=== PATIENT | female | born 1955 | race Caucasian/White ===

== ENCOUNTER 2022-03-12 11:10 | Outpatient (CLI) | payer MEDICARE, BC, SELFPAY ==
--- OUTSIDE RECORDS SUMMARY | 2022-03-12 11:20 | XMS_ITS | Encounter Summary ---
:1955 Author Organization [facility] Address [address] [place] [address] Care Team Providers Name Role Phone Kamar Saldivar MD Primary Care Provider Reason for Visit Reason Onset Date Comments Call pt 10/20/2020 Encounter Details Date Type Department Care Team Description 10/20/2020 Telephone SE Endocrinology Annita Rivas MBBS Call pt [address] [place] [address] [place] [address] (Wo rk) Social History Tobacco Use Types Packs/Day Years Used Date Never Smoker Smokeless Tobacco: Never Used Alcohol Use Standard Drinks/Week Comments Yes 0 (1 standard drink = 0.6 oz pure alcoho l) 1 drink/wk Alcohol Habits Answer Date Recorded How often do you have a drink containing alcohol? Not asked How many drinks containing alcohol do you have on a typical Not asked day when you are drinking? How often do you have six or more drinks on one occasion? No t asked Comment: 1 drink/wk 07/22/2018 Education Answer Date Recorded What is the highest level of school Bachelor's degree (e.g., BA, AB, 07/22/2018 you have completed or the highest BS) degree you have received? Sex Assigned at Date Recorded Female 11/20/2020 8:01 AM CDT documented as of this encounter Miscellaneous Notes Telephone Encounter - JIMBO Botello - 10/21/2020 9:28 PM CDT Replied in result note, thank you. Telephone Encounter - Ruby Haque MA - 10/20/2020 4:42 PM CDT Talked with patient and she checked with her insurance about the Nuclear Medicine Testing at [place] and [facility] is out of network therefore the cost to do the testing would be very expensive. Patientis unsure if [place] would be able to do the Nuclear Medicine Testing. Also patient had labs done yesterday. Please review and advise. Telephone Encounter - Dionne Pablo - 10/20/2020 1:27 PM CDT Please call patient regarding her situation with her possible upcoming surgery. She has cancelled her future follow up appointment that was scheduled for 11/10/20 and would like to talk to a nurse priorto rescheduling. documented in this encounter Plan of Treatment Upcoming Encounters Date Type Specialty Care Team Description 03/21/2022 Office Visit Endocrinology Annita Rivas MBBS [address] [place], [place] [address] (Wo rk) documented as of this encounter Visit Diagnoses Not on filedocumented in this encounter Care Teams Air Traffic Control Equipment Repairer Relationship Specialty Start Date End Date Kamar Saldivar MD PCP - General Family Medicine 09/20/[address] [place] [address] documented as of this encounter
--- OUTSIDE RECORDS SUMMARY | 2022-03-12 11:20 | XMS_ITS | Encounter Summary ---
:[address] [facility] Address [address] [place] [address] Care Team Providers Name Role Phone Kamar Saldivar MD Primary Care Provider Encounter Details Date Type Department Care Team Description 11/09/2020 Orders Only SE Family Med Kamar Saldivar MD [address] [facility] [address] [place] [address] [place], [place] [phone] (Wo rk) Social History Tobacco Use Types [...] AM CDT documented as of this encounter Plan of Treatment Upcoming Encounters Date Type Specialty Care Team Description 03/21/2022 Office Visit Endocrinology Annita Rivas MBBS [address] [place], [place] [address] (Wo rk) documented as of this encounter Visit Diagnoses Not on filedocumented in this encounter Care Teams Certified Registered Nurse Anesthetist Relationship Specialty Start Date End Date Kamar Saldivar MD PCP - General Family Medicine 09/20/[address] [place] [address] documented as of this encounter
--- OUTSIDE RECORDS SUMMARY | 2022-03-12 11:20 | XMS_ITS | Encounter Summary ---
:1955 Author Organization [facility] Address [address] [place] [address] Care Team Providers Name Role Phone Kamar Saldivar MD Primary Care Provider Reason for Visit Reason Onset Date Comments lab results 201902/26/2022 Encounter Details Date Type Department Care Team Description 02/26/2022 Telephone [place] Kamar Saldivar MD lab results [address] [place], [place] [address] [place], [place] [phone] (Wo rk) Social History Tobacco Use Types [...] this encounter Miscellaneous Notes Telephone Encounter - Roula Martinez RN - 02/26/2022 12:11 PM CDT RN spoke to patient and gave her the values of her urine and serum calicum from 2020.Patient cydney is unable to get into her portal at this time. Telephone Encounter - Angela Whiting - 02/26/2022 11:51 AM CDT Requesting #s amounts of calcium and blood from x2 samples [facility] lab Sep 2019. [phone] documented in this encounter Plan of Treatment Upcoming Encounters Date Type Specialty Care Team Description 03/21/2022 Office Visit Endocrinology Annita Rivas MBBS [address], [place] [address] (Wo rk) documented as of this encounter Visit Diagnoses Not on filedocumented in this encounter Care Teams Ramp Jockey Relationship Specialty Start Date End Date Kamar Saldivar MD PCP - General Family Medicine 09/20/[address] [place] [address] documented as of this encounter
--- OUTSIDE RECORDS SUMMARY | 2022-03-12 11:20 | XMS_ITS | Encounter Summary ---
:1955 Author Organization [facility] Address [address] [place] [address] Care Team Providers Name Role Phone Kamar Saldivar MD Primary Care Provider Reason for Visit Reason Comments Hypercalcemia Encounter Details Date Type Department Care Team Description 11/16/2020 Office Visit Endocrinology Rivas, Hyperparathyroidism (HCC) (P rimary Dx); [address] [place], Hypercalcemia; [place] [address] MBBS Hypercalciuria; [phone] Weight gain [place], [place] [address] Social History Tobacco Use Types Packs/Day Years [...] AM CDT documented as of this encounter Last Filed Vital Signs Vital Sign Reading Time Taken Comments Blood Pressure 123/82 11/16/2020 4:15 PM CDT Pulse 78 11/16/2020 4:15 PM CDT Temperature 36.3 ??C (97.3 ??F) 11/16/2020 4:15 PM CDT Respiratory Rate 12 11/16/2020 4:15 PM CDT Oxygen Saturation 94% 11/16/2020 4:15 PM CDT Inhaled Oxygen Concentration - - Weight 79.1 kg (174 lb 6.1 oz) 11/16/2020 4:15 PM CDT Height 169 cm (5' 6.54) 11/16/2020 4:15 PM CDT Body Mass Index 27.7 11/16/2020 4:15 PM CDT documented in this encounter Progress Notes JIMBO Botello - 11/16/2020 4:00 PM CDT Estab Patient Visit Patient: Christen Tidwell 65 y.o. female 1955 Date of Service: 11/16/20 Primary care provider: Kamar Saldivar MD Reason for visit: Christen Tidwell is a 65 y.o. female presenting for follow up of hyperparathyroidism. History of presenting illness: Patient is a female with medical history significant for sleep disorder treated with CPAP, Lyme disease and babesiosis. Patient was first made aware of hypercalcemia in 07/2019 when her calcium was 10.9 (8.4-10.2). She was on a calcium supplement which she was advised to stop. Labs were repeated in 08/2020. Calcium was again elevated, 10.6. Serum albumin and kidney function were normal. PTH was elevated as well, 90.8 (10-87). TSH was 1.56. Vitamin D was 51.6. Phosphorous was not checked. Urine calcium was high, 532. Urine creatinine was not checked. She presents for follow up today, last seen on 10/02/20. Patient states that she does not sleep well and feels tired all the time. She is concerned about weight gain, states that she has gained 2 pounds since the last visit and 10-15 pounds in the last year. She expresses frustration about it, as she monitors her diet and exercises on regular basis. She denies any nausea, vomiting or abdominal pain. She routinely drinks plenty of fluids and has increased urination as a result. She denies polydipsia orpolyuria as such . Denies constipation. Denies any bone aches or pains. Denies any history of kidneystones. No history of fragility fractures. She recently had bone density scan at [facility], which was normal. Denies cigarette smoking or significant alcohol use. No family history of calciumdisorders. Denies use of any calcium supplements. She takes a daily multivitamin. She takes a vitamin D3 1000 units daily. Denies use of thiazide diuretics. Patient checked her old medical records and found her calcium to be elevated in 2016, 10.6. She completed labs on 10/19/20. PTH and calcium were again elevated, 88.6 and 10.5 respectively. Serum electrolytes, creatinine, albumin, phos and magnesium were normal. 24-hr urine calcium was 384 on 10/27/20. Urine creatinine was 1296, urine volume 4800 mL. PM/SH: Past Medical History: Diagnosis Date ??? Cardiac murmur ??? History of babesiosis ??? History of Lyme disease ??? Skin cancer squamous cell ??? Varicella ??? Visual impairment Past Surgical History: Procedure Laterality Date ??? CYST REMOVAL LEFT KNEE ??? KNEE CARTILAGE SURGERY Left ??? TUBAL LIGATION Medications: Medications in EHR reviewed. Allergies: Allergies Allergen Reactions ??? Levofloxacin Shortness of breath Family History: Family History Problem Relation Age of Onset ??? Skin cancer Mother ??? Hyperlipidemia Mother ??? Hypertension Mother ??? Dementia Mother ??? Melanoma Father ??? Heart disease Father ??? Stroke Father ??? Mental illness Father ??? Parkinsonism Father ??? Hyperlipidemia Brother ??? Alcohol abuse Brother ??? Aneurysm Maternal Grandmother ??? Alcohol abuse Paternal Grandfather ??? Melanoma Daughter Social History: Social History Socioeconomic History ??? Marital status: Spouse name: Not on file ??? Number of children: 4 ??? Years of education: Not on file ??? Highest education level: Bachelor's degree (e.g., BA, AB, BS) Occupational History ??? Occupation: Sub. teacher Social Needs ??? Financial resource strain: Not on file ??? Food insecurity Worry: Not on file Inability: Not on file ??? Transportation needs Medical: Not on file Non-medical: Not on file Tobacco Use ??? Smoking status: Never Smoker ??? Smokeless tobacco: Never Used Substance and Sexual Activity ??? Alcohol use: Yes Comment: 1 drink/wk ??? Drug use: No ??? Sexual activity: Defer Lifestyle ??? Physical activity Days per week: Not on file Minutes per session: Not on file ??? Stress: Not on file Relationships ??? Social connections Talks on phone: Not on file Gets together: Not on file Attends muslim service: Not on file Active member of club or organization: Not on file Attends meetings of clubs or organizations: Not on file Relationship status: Not on file ??? Intimate partner violence Fear of current or ex partner: Not on file Emotionally abused: Not on file Physically abused: Not on file Forced sexual activity: Not on file Other Topics Concern ??? Not on file Social History Narrative Live in house alone. No pets. Review of System: As per HPI, all other systems negative. Physical Examination: Visit Vitals BP 123/82 Pulse 78 Temp 36.3 ??C (97.3 ??F) (Temporal) Resp 12 Ht 1.69 m (5' 6.54) Wt 79.1 kg (174 lb 6.1 oz) SpO2 94% BMI 27.70 kg/m?? OB Status Postmenopausal Smoking Status Never Smoker BSA 1.93 m?? Constitutional: Appears well, No acute distress HEENT: AT/NC, EOMI, no proptosis Respiratory: Normal regular breathing Neurological: AAOx3 Psych: Normal mood, pleasant affect Laboratory Work up: Reviewed Imaging: Reviewed Assessment and Plan: 1. Hypercalcemia: 2. Hyperparathyroidism: 3. Hypercalciuria: 4. Concern about weight gain: -I reviewed her recently completed lab results with her. Calcium and PTH remain mildly elevated. Phosphorus, magnesium, albumin, vitamin D and creatinine are normal. 24-hour urine calcium is elevated but <400. -I reviewed that she most likely has primary hyperparathyroidism. I discussed management of primary hyperparathyroidism with her again and that surgery is the only definitive treatment. -Patient does not meet surgical criteria at this point, although urinary calcium is close to threshold. Discussed that surgery can still be a consideration, however. If opted, she will need to completeparathyroid imaging. Patient indicated that [facility] is out of network and cost will be unaffordable for her. We will check with Dr. Donnelly, if imaging at [facility] will be acceptable. -Patient is concerned about weight gain. I reassured her that it is not expected to be parathyroid related. -She was advised to continue to avoid any calcium supplements. Dietary calcium would be okay. -She was advised to ensure adequate hydration. -Follow-up in about 6 months, with labs. Reviewed with the patient in detail, she verbalized understanding and agreed with the plan. I spent 45 minutes on chart/data review, patient care, counseling, answering multiple questions and documentation. Annita Rivas MD Staff Educational Administration Teacher documented in this encounter Plan of Treatment Upcoming Encounters Date Type Specialty Care Team Description 03/21/2022 Office Visit Endocrinology Annita Rivas MBBS [address] [place], [place] [address] (Wo rk) documented as of this encounter Visit Diagnoses Diagnosis Hyperparathyroidism (HCC) - Primary Hyperparathyroidism, unspecified Hypercalcemia Hypercalciuria Unspecified disorders of calcium metabol ism Weight gain Other symptoms concerning nutrition, met abolism, and development documented in this encounter Care Teams Shoe Repairman Relationship Specialty Start Date End Date Kamar Saldivar MD PCP - General Family Medicine 09/20/[address] [place] [address] documented as of this encounter
--- OUTSIDE RECORDS SUMMARY | 2022-03-12 11:20 | XMS_ITS | Encounter Summary ---
:1955 Author Organization [facility] Address [address] [place] [address] Care Team Providers Name Role Phone Kamar Saldivar MD Primary Care Provider Reason for Visit Reason Onset Date Comments Dexa Scan 10/24/2020 Encounter Details Date Type Department Care Team Description 10/24/2020 Telephone [place] Kamar Saldivar MD Dexa Scan [address] [place], [place] [address] [place], [place] [phone] (Wo rk) Social History Tobacco Use Types [...] this encounter Miscellaneous Notes Telephone Encounter - Miroslava Miller LPN - 10/27/2020 2:10 PM CDT Noted Telephone Encounter - Cami Davies RN - 10/25/2020 8:20 AM CDT Can the dexa scan be changed to preventative or is something more needed? Attempted to call patient to confirm, however call would not go through. Will try again later. Telephone Encounter - Antoinette Hogan - 10/24/2020 4:07 PM CDT Pt called stating her insurance will not cover the Dexa scan ordered as diagnostic. Pt said it needsto be preventative. Please call Pt at [phone] to advise. documented in this encounter Plan of Treatment Upcoming Encounters Date Type Specialty Care Team Description 03/21/2022 Office Visit Endocrinology Annita Rivas MBBS [address] [place], [place] [address] (Wo rk) documented as of this encounter Visit Diagnoses Not on filedocumented in this encounter Care Teams Treasury Management Sales Consultant Relationship Specialty Start Date End Date Kamar Saldivar MD PCP - General Family Medicine 09/20/[address] [place] [address] documented as of this encounter
--- OUTSIDE RECORDS SUMMARY | 2022-03-12 11:20 | XMS_ITS | Encounter Summary ---
:1955 Author Organization [facility] Address [address] [place] [address] Care Team Providers Name Role Phone Kamar Saldivar MD Primary Care Provider Encounter Details Date Type Department Care Team Description 10/26/2020 Lab [place] Hyperparathyroidism (HCC); [address] Hypercalcemia [place], [place] [address] Social History Tobacco Use Types Packs/Day Years [...] Visit Endocrinology Annita Rivas MBBS [address] [place], [place] [address] (Wo rk) documented as of this encounter Procedures Procedure Name Priority Date/Time Associated Diagnosis Comme nts CALCIUM, URINE, Routine 10/27/2020 8:34 Hyperparathyroid ism (HCC) Results for this 24 HOUR AM CDT Hypercalcemia procedure are in the results section. CREATININE, Routine 10/27/2020 8:34 Hyperparathyroid ism (HCC) Results for this URINE, 24 HOUR AM CDT Hypercalcemia procedure ar e in the results section. documented in this encounter Results Creatinine, urine, 24 hour (10/27/2020 8:34 AM CDT) athologist Signature Urine Volume 4,800 mL 10/27/2020 [facility] 1:47 PM [facility] Creatinine, 27 mg/dL 10/27/2020 [facility] Urine 1:47 PM T [facility] Comment: No established reference range. Creatinine, 24H Ur 1,296 800 - 1,800 10/27/2020 1:47 PM [facility] mg/24 hours T [facility] Comment: . Specimen Anatomical Collection Method Collection Time Receive d Time (Source) Location / / Volume Laterality Urine 10/27/2020 8:34 AM CDT 12:57 PM CDT Annita CHOI LAB URINE ORDERABLES Performing Organization Address City/State/ZIP Code Phon e Number [facility] [address] [place] [address] (ABNORMAL) Calcium, urine, 24 hour (10/27/2020 8:34 AM CDT) [facility] gist Method Time Signature Calcium, 24H 384 (H) <200 mg/24 10/28/2020 [facility] Urine h 7:25 AM CDT [facility] Comment: ADDITIONAL INFORMATIO N This test has been modified from the man chely's instructions. Its performance characteri stics were determined by [facility] in a manner co nsistent with CLIA requirements. This test has not bee n cleared or approved by the U.S. Food and Drug Admin istration. Collection Duration 24 h 10/28/2020 7:25 AM C DT [facility] Urine Volume 4,800 mL 10/28/2020 7:25 AM CDT [facility] Calcium Concentration 8 mg/dL 10/28/2020 7:25 AM CDT [facility] Comment: Test Performed by: [facility] - [address] [address] Principal Solutions Architect: Milan Estevez M.D. Ph. D.; CLIA# [id number] Specimen Anatomical Collection Method Collection Time Receive d Time (Source) Location / / Volume Laterality Urine 10/27/2020 8:34 AM 2:39 CDT PM CDT Annita CHOI LAB URINE ORDERABLES Performing Organization Address City/State/ZIP Code Phon e Number [facility] see result attachment for specific address documented in this encounter Visit Diagnoses Diagnosis Hyperparathyroidism (HCC) Hyperparathyroidism, unspecified Hypercalcemia documented in this encounter Care Teams Truck Washer Relationship Specialty Start Date End Date Kamar Saldivar MD PCP - General Family Medicine 09/20/[address] [place] [address] documented as of this encounter
--- OUTSIDE RECORDS SUMMARY | 2022-03-12 11:20 | XMS_ITS | Clinical Summary ---
:1955 Author Organization [facility] Address [address] [place] [address] Care Team Providers Name Role Phone Kamar Saldivar MD Primary Care Provider Allergies Active Allergy Reactions Severity Noted Date Comments Levofloxacin Shortness of breath High Medications Medication Sig Dispensed Refills Start Date End Date Status cholecalciferol Take 50,000 Units 0 Active (VITAMIN D-3) 25 MCG by mouth (1000 UT) capsule Specialty Vitamins Take by mouth 1 0 Active Products (LONGEVITY PO) (one) time each day 5 pills in a pack, AM Longevity - Peak Performance Charcoal Activated Take by mouth 0 Active (ACTIVATED CHARCOAL PO) Probiotic Product 0 Ac tive (PROBIOTIC PO) Active Problems Problem Noted Date Weight gain 11/18/2020 Hypercalciuria 10/03/2020 Hypercalcemia 10/02/2020 Hyperparathyroidism 09/19/2020 Cervical cancer screening 09/12/2020 Overview: One abnormal PAP in July 2008: ASCUS and HPV negative. Since then has had PAPs with NIL (2009, 2012, 2014, 2017) Special screening for malignant neoplasms, colon 05/11 Overview: Overview: 08/11/06 Colonoscopy 04/2017 normal repeat in 10 years Hx of onychomycosis 05/11/2020 Encounters Date Type Specialty Care Team Description 02/26/2022 Telephone Family Medicine Kamar Saldivar MD lab results 2019 from Last 3 Months Immunizations Name Administration Dates Next Due Td 03/23/2003 Tdap 03/12/2016, 08/10/2012 Family History Medical History Relation Comments Alcohol abuse Brother 1 Hyperlipidemia Brother 1 Melanoma Daughter 1 Heart disease Father Melanoma Father Mental illness Father Parkinsonism Father Stroke Father Aneurysm Maternal Grandmother Dementia Mother Hyperlipidemia Mother Hypertension Mother Skin cancer Mother Alcohol abuse Paternal Grandfather Relation Status Comments Brother 1 Alive Brother 2 Alive Brother 3 Alive Daughter 1 Alive Daughter 2 Alive Father Maternal Grandmother Mother Paternal Grandfather Son 1 Alive Son 2 Alive Social History Tobacco Use Types Packs/Day Years [...] Date Recorded Female 11/20/2020 8:01 AM CDT Last Filed Vital Signs Vital Sign Reading [...] Mass Index 27.7 11/16/2020 4:15 PM CDT Plan of Treatment Upcoming Encounters Date Type Specialty Care Team Description 03/21/2022 Office Visit Endocrinology Annita Rivas MBBS [address] [place], [place] [address] (Wo rk) Health Maintenance Due Date Last Done Comments COVID-19 Vaccine (#1) 01/16/1956 Fall Risk Performed 1974 [facility] Pneumococcal Vaccine: 2021 65+ Years (1 - PCV) Pap Smear 07/24/2021 07/24/2018, 03/14/2015, 08/18/2008 Mammogram 08/31/2021 08/31/2020, 08/18/2019, 07/10/2018, Additional history exists Colorectal Cancer 05/26/2027 05/26/2017 Screening: Colonoscopy HPV Vaccines Aged Out No longer eligib le based on patient 's age to complete this topic [facility] Pneumococcal Vaccine: Aged Out No oseas ashleigh eligible <64 based on patient 's age to complete this topic Insurance Payer Benefit Plan / Subscriber ID Effective Phone Address T ype Group Dates IPTEGO [id number] 2017-Prese [address] [place] [address] Advance Directives For more information, please contact: [phone] Documents on File Type Date Recorded Patient Alley Worker Explanati on Advance Directives and Living 03/18/2019 12:25 PM Will Care Teams Bar Back Relationship Specialty Start Date End Date Kamar Saldivar MD PCP - General Family Medicine 09/20/[address] [place] [address]
--- OUTSIDE RECORDS SUMMARY | 2022-03-12 11:21 | XMS_ITS | Encounter Summary ---
:1955 Author Organization [facility] Address [address] [place] [address] Care Team Providers Name Role Phone None, Pcp Primary Care Provider Unavailable Reason for Visit Reason Comments Annual Exam Encounter Details Date Type Department Care Team Description 09/11/2020 Office Visit [place] Kamar Saldivar, Annual physical exam (Primar y Dx); [address] MD Hypercalcemia; [place], [place] [address] Overweight (BMI 25.0-29.9) [address] [place], [place] [phone] [address] Social History Tobacco Use Types Packs/Day Years [...] Sign Reading Time Taken Comments Blood Pressure 122/80 09/11/2020 8:07 AM POT FLUXER Pulse 76 09/11/2020 8:07 AM POT FLUXER Temperature 36.6 ??C (97.8 ??F) 09/11/2020 8:07 AM POT FLUXER Respiratory Rate 18 09/11/2020 8:07 AM POT FLUXER Oxygen Saturation 98% 09/11/2020 8:07 AM POT FLUXER Inhaled Oxygen Concentration - - Weight 77 kg (169 lb 11.2 oz) 09/11/2020 8:07 AM POT FLUXER Height 170 cm (5' 6.93) 09/11/2020 8:07 AM POT FLUXER Body Mass Index 26.64 09/11/2020 8:07 AM POT FLUXER documented in this encounter Progress Notes Kamar Saldivar MD - 09/11/2020 8:00 AM CST Subjective Patient ID: Christen Tidwell is a 65 y.o. female. Chief Complaint Patient presents with ??? Annual Exam HPI Patient here for annual exam. She is frustrated that she has not lost weight. She states she is fairly active (walks and dedicated exercise) and is following a low FODMAP diet for the past 6 weeks which has helped with some GI discomfort. 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 She had testing for this condition at outside chiropractor. Does not have a scale at home. Eats a lot of vegetables. She does not eat a lot sugar, candy or sweetened drinks. Rare alcohol use. She says she is worried with her new diet that her sugar goes low during the day as she gets shaky (she is eating 3 meals per day now without snacking between). This has only been a problem since the diet switch (she was doing paleo diet prior to the FODMAP switch and had no issues with it). She is debating whether she wants to get her cortisol rechecked as it was high in the past (this was apparently checked by her chiropractor through a place called [email or web address]). Mammo on 09/01/2020 negative. She wears CPAP for what sounds like upper airway resistance syndrome. Wakes up at around 430 AM. The following portions of the patient's chart were reviewed in this encounter and updated as appropriate: Tobacco Allergies Meds Med Hx Surg Hx OB Status Fam Hx Soc Hx ROS A complete 10-point ROS was done and all systems negative except for what is documented in the HPI. Objective Visit Vitals BP 122/80 (BP Location: Left arm, Patient Position: Sitting) Pulse 76 Temp 36.6 ??C (97.8 ??F) (Temporal) Resp 18 Ht 1.7 m (5' 6.93) Wt 77 kg (169 lb 11.2 oz) SpO2 98% BMI 26.64 kg/m?? OB Status Postmenopausal Smoking Status Never Smoker BSA 1.91 m?? Physical Exam GEN: well appearing, no acute distress, vital signs reviewed HENT: NCAT, EOMI, PERRL, no rhinorrhea. oropharynx, tongue and buccal mucosa without lesions, erythema or exudate NECK: Thyroid non-tender and normal size, no cervical or supraclavicular adenopathy HEART: RRR, systolic murmur II/, normal S1/S2 CHEST: Lungs CTA micheal ABDOMEN: BS+, soft, non-tender EXT: no LE edema. Radial pulses 2+ micheal. MSK: no spinal tenderness : no CVA tenderness DERM: no rashes on exposed skin Psych: Normal behavior and affect NEURO: Normal finger-nose testing Assessment/Plan Diagnosis Plan 1. Annual physical exam 2. Hypercalcemia Basic metabolic panel Vitamin D, Total PTH, intact Alkaline phosphatase Alkaline phosphatase PTH, intact Vitamin D, Total Basic metabolic panel Glomerular filtration rate (GFR) 3. Overweight (BMI 25.0-29.9) Thyroid Function [place] Thyroid Function [place] Discussed diet and exercise. Requesting recheck of thyroid which is reasonable given weight gain. Given high calcium last year, will recheck with above testing including pth. Return in about 1 year (around 09/11/2021) for Next scheduled follow-up. Note created using voice dictation software. FLUXER documented in this encounter Plan of Treatment Upcoming Encounters Date Type Specialty Care Team Description 03/21/2022 Office Visit Endocrinology Annita Rivas MBBS [address] [place] [id number] (Wo rk) documented as of this encounter Procedures Procedure Name Priority Date/Time Associated Diagnosis Comme nts GLOMERULAR Routine 09/11/2020 9:06 AM Hypercalcemia Results for this FILTRATION RATE POT FLUXER procedure ar e in the results section. THYROID FUNCTION Routine 09/11/2020 9:06 AM Overweight (BMI Re sults for this CASCADE POT FLUXER 25.0-29.9) procedure are i n the results section. VITAMIN D, TOTAL Routine 09/11/2020 9:06 AM Hypercalcemia Resu lts for this POT FLUXER procedure are i n the results section. ALKALINE PHOSPHATASE Routine 09/11/2020 9:06 AM Hypercalcemia Results for this POT FLUXER procedure are i n the results section. PTH, INTACT Routine 09/11/2020 9:06 AM Hypercalcemia Results for this POT FLUXER procedure are i n the results section. ALBUMIN Routine 09/11/2020 9:06 AM Results f or this POT FLUXER procedure are i n the results section. BASIC METABOLIC Routine 09/11/2020 9:06 AM Hypercalcemia Resul ts for this PANEL POT FLUXER procedure are i n the results section. documented in this encounter Results Albumin (09/11/2020 9:06 AM POT FLUXER) athologist Signature Albumin, Serum 4.9 3.5 - 5.0 09/11/2020 [facility] L g/dL 1:49 PM POT FL[facility] Specimen Anatomical Collection Method Collection Time Receive d Time (Source) Location / / Volume Laterality 09/11/2020 9:06 AM POT FLUXER 12:36 PM POT FLUXER Kamar Saldivar MD LAB BLOOD ORDERABLES Performing Organization Address City/State/ZIP Code Phon e Number [facility] [address] [place] [address] Glomerular filtration rate (GFR) (09/11/2020 9:06 AM POT FLUXER) athologist Signature GFR >60 09/11/2020 [facility] 9:27 AM POT FL[facility] >60 09/11/2020 [facility] [place] GFR 9:27 AM [facility] Comment: GFR calculated from serum creatinine v alue Chronic Kidney Disease less than 60 mL/m in/1.73 m2 Kidney Failure less than 15 mL/min/1.73 m2 Note: effective 12/10/06 IDMS-Traceable MDRD Study Equation used. Specimen Anatomical Collection Method Collection Time Receive d Time (Source) Location / / Volume Laterality 09/11/2020 9:06 AM 9:06 POT FLUXER AM POT FLUXER Kamar Saldivar MD LAB BLOOD ORDERABLES Performing Organization Address City/[facility]/ZIP Code Phon e Number [facility] [address] [place] [address] Thyroid Function [place] (09/11/2020 9:06 AM POT FLUXER) athologist Signature TSH, Sensitive 1.56 0.46 - 09/12/2020 [facility] 4.68 mIU/L 3:01 PM [facility] Comment: The results from this or any other diagn ostic test should be used and interpreted only in the context of the overall clinical picture. Biotin levels in serum remain elevated f or up to 24 hours after oral or intravenous biotin adminis tration and may interfere with this assay to produce unr eliable results. Heterophilic antibodies in serum or plas ma samples may cause interference in immunoassays. ??Exposure to animal antigens, either in the environment or as part of treatment or imaging procedures, may have circulating anti-an imal antibodies present. These antibodies may interfere with the assay reagents to produce unreliable results. ??Results which are inconsistent with clinical observations indicate the need for additional testing. Specimen Anatomical Collection Method Collection Time Receive d Time (Source) Location / / Volume Laterality Blood (Blood, 09/11/2020 9:06 AM 09/12/19 2:02 Venous) POT FLUXER PM POT FLUXER Kamar Saldivar MD LAB BLOOD ORDERABLES Performing Organization Address [facility]/ZIP Code Phon e Number [facility] [address] [place] [phone] Alkaline phosphatase (09/11/2020 9:06 AM POT FLUXER) athologist Signature Alkaline 92 38 - 128 09/11/2020 [place] Phosphatase U/L 1:18 PM [facility] Specimen Anatomical Collection Method Collection Time Receive d Time (Source) Location / / Volume Laterality Blood (Blood, 09/11/2020 9:06 AM 09/11/19 Venous) POT FLUXER 12:36 PM POT FLUXER Kamar Saldivar MD LAB BLOOD ORDERABLES Performing Organization Address City/[facility]/ZIP Code Phon e Number [facility] [address] [place] [address] (ABNORMAL) PTH, intact (09/11/2020 9:06 AM POT FLUXER) [facility] gist Method Time Signature Parathyroid 90.8 (H) 10.0 - 09/11/2020 [facility] Hormone 87.0 2:03 PM [facility] pg/mL LABORATORY Comment: The results from this or any other diagn ostic test should be used and interpreted only in the context of the overall clinical picture. Biotin levels in serum remain elevated f or up to 24 hours after oral or intravenous biotin adminis tration and may interfere with this assay to produce unr eliable results. Heterophilic antibodies in serum or plas ma samples may cause interference in immunoassays. ??Exposure to animal antigens, either in the environment or as part of treatment or imaging procedures, may have circulating anti-an imal antibodies present. These antibodies may interfere with the assay reagents to produce unreliable results. ??Results which are inconsistent with clinical observations indicate the need for additional testing. Specimen Anatomical Collection Method Collection Time Receive d Time (Source) Location / / Volume Laterality Blood (Blood, 09/11/2020 9:06 AM 09/11/19 21 Venous) POT FLUXER 12:49 PM POT FLUXER Kamar Saldivar MD LAB BLOOD ORDERABLES Performing Organization Address City/State/ZIP Code Phon e Number [facility] [address] [place] [phone] Vitamin D, Total (09/11/2020 9:06 AM POT FLUXER) athologist Signature Vitamin D, 51.6 ng/mL 09/12/2020 [facility] Total 1:41 PM [facility] Comment: Deficient ?<20 ? ng/mL Insufficient ? 20-<30 ??ng/mL Sufficient ? 30-100 ??ng/mL Vitamin D2/D3 fractionation is recommend ed at the discretion of the clinician if Total Vitamin D is w ithin deficient or insufficient range. Specimen Anatomical Collection Method Collection Time Receive d Time (Source) Location / / Volume Laterality Blood 09/11/2020 9:06 AM POT FLUXER 12:51 PM POT FLUXER Kamar Saldivar MD LAB BLOOD ORDERABLES Performing Organization Address City/State/ZIP Code Phon e Number [facility] [address] [place] [phone] (ABNORMAL) Basic metabolic panel (09/11/2020 9:06 AM POT FLUXER) P athologist Signature Sodium 145 135 - 145 09/11/2020 [facility] mmol/L 9:27 AM [facility] [place] Potassium 4.8 3.5 - 5.1 09/11/2020 [facility] mmol/L 9:27 AM [facility] [place] Comment: . Chloride 105 98 - 107 mmol/L 09/11/2020 9:27 AM [facility]OT FLUXER [facility] Comment: . CO2 31 (H) 22 - 29 mmol/L 09/11/2020 9:27 AM POT FLUXER [facility] Comment: . Creatinine 0.6 0.4 - 1.2 mg/dL 09/11/2020 9:27 AM POT FLUXER [facility] Comment: . BUN 17 5 - 25 mg/dL 09/11/2020 9:27 AM POT FLUXER [facility] Comment: . Glucose 87 70 - 100 mg/dL 09/11/2020 9:27 AM [facility] POT FLUXER Calcium, Total,S 10.6 (H) 8.4 - 10.2 mg/dL 09/11/2020 9:27 AM [facility] POT FLUXER Comment: . Fasting? No 09/11/2020 9:06 AM [facility] FL[facility] Specimen Anatomical Collection Method Collection Time Receive d Time (Source) Location / / Volume Laterality Blood (Blood, 09/11/2020 9:06 AM 09/11/19 9:06 Venous) POT FLUXER AM POT FLUXER Kamar Saldivar MD LAB BLOOD ORDERABLES Performing Organization Address City/State/ZIP Code Phon e Number [facility] [place] [address] [place] [address] documented in this encounter Visit Diagnoses Diagnosis Annual physical exam - Primary Routine general medical examination at a health care facility Hypercalcemia Overweight (BMI 25.0-29.9) Overweight documented in this encounter Care Teams Engraving Operator Relationship Specialty Start Date End Date None, Pcp PCP - General Leave Coordinator 05/10/20 09/19/20 [address] [place] [address] documented as of this encounter
--- OUTSIDE RECORDS SUMMARY | 2022-03-12 11:21 | XMS_ITS | Encounter Summary ---
:1955 Author Organization [facility] Address [address] [place] [address] Care Team Providers Name Role Phone Kamar Saldivar MD Primary Care Provider Reason for Visit Reason Onset Date Comments lab kit 10/05/2020 Encounter Details Date Type Department Care Team Description 10/05/2020 Telephone [place] Kamar Saldivar MD lab kit [address] [place], [place] [address] [place], [place] [phone] [address] (Wo rk) Social History Tobacco Use Types [...] this encounter Miscellaneous Notes Telephone Encounter - Cami Davies RN - 10/18/2020 4:13 PM CDT Noted. Telephone Encounter - Antoinette Hogan - 10/18/2020 4:03 PM CDT Lab (kit) appt scheduled for 10/19/20. Telephone Encounter - Miroslava Miller LPN - 10/05/2020 3:39 PM CST Please schedule patient appropriately. NG STITCHER Telephone Encounter - Roula Martinez RN - 10/05/2020 3:30 PM CST Patient informed by PSR. NG STITCHER Telephone Encounter - Miroslava Miller LPN - 10/05/2020 10:38 AM CST LMTC, Friday would be the best day. NG STITCHER Telephone Encounter - Antoinette Hogan - 10/05/2020 10:16 AM CST Pt called stating she dropped off a lab kit and was wondering when she could come in to do it. Please call Pt at [phone] to advise. NG STITCHER documented in this encounter Plan of Treatment Upcoming Encounters Date Type Specialty Care Team Description 03/21/2022 Office Visit Endocrinology Annita Rivas MBBS [address] [place], [place] [address] (Wo rk) documented as of this encounter Visit Diagnoses Not on filedocumented in this encounter Care Teams Business Taxes Specialist Relationship Specialty Start Date End Date Kamar Saldivar MD PCP - General Family Medicine 09/20/[address] [place] [address] documented as of this encounter
--- OUTSIDE RECORDS SUMMARY | 2022-03-12 11:21 | XMS_ITS | Encounter Summary ---
:1955 Author Organization [facility] Address [address] [place] [address] Care Team Providers Name Role Phone Martha Grace APRN, [facility] Primary Care Provider [phone] Encounter Details Date Type Department Care Team Description 07/22/2018 [facility] Family [facility] Martha Grace, [place], [address] [place] [address] [place] [address] AVE [phone] [place], [place] [address] Social History Tobacco Use Types Packs/Day Years Used Date Never Smoker Alcohol Use Standard Drinks/Week Comments Yes 0 [...] Visit Endocrinology Annita Rivas MBBS [address] [place], [place] [address] (Wo rk) documented as of this encounter Visit Diagnoses Not on filedocumented in this encounter Care Teams Suede Brusher Relationship Specialty Start Date End Date Martha Grace, AUTOMOTIVE SALES ASSOCIATE, AERONAUTICAL ENGINEERING TEACHER PCP - General 03/03/18 04/03/20 [address] [facility] [place] [place] [id number] documented as of this encounter
--- OUTSIDE RECORDS SUMMARY | 2022-03-12 11:21 | XMS_ITS | Encounter Summary ---
:1955 Author Organization [facility] Address [address] [place] [address] Care Team Providers Name Role Phone Kamar Saldivar MD Primary Care Provider Reason for Visit Reason Onset Date Comments Change princess Hx 10/05/2020 Encounter Details Date Type Department Care Team Description 10/05/2020 Telephone [place] Endocrinology Annita Rivas MBBS Change [place] Hx [address] [place] [address] [place] [address] [phone] (Wo rk) Social History Tobacco Use Types [...] this encounter Miscellaneous Notes Telephone Encounter - Ruby Haque MA - 10/06/2020 11:47 AM CST Last read by Christen Tidwell at 9:26 AM on 10/06/2020. R HELPER Telephone Encounter - Ruby Haque MA - 10/06/2020 8:24 AM CST [employer] message sent to patient. R HELPER Telephone Encounter - JIMBO Botello - 10/06/2020 4:13 AM CST I am sorry about that. I have changed my note to reflect that she has pain in her left knee and deleted colon cancer from her family history. Thank you. R HELPER Telephone Encounter - Dionne Pablo - 10/05/2020 10:07 AM CST Patient called to let Dr Rivas know that the notation on her Visit Summary for 10/02/2020. Its noted she has issues with her Rt knee but it is actually her Lt knee. She also waited it noted that her father did not have colon cancer as she reported (in error). R HELPER documented in this encounter Plan of Treatment Upcoming Encounters Date Type Specialty Care Team Description 03/21/2022 Office Visit Endocrinology Annita Rivas MBBS [address] [place], [place] [address] (Wo rk) documented as of this encounter Visit Diagnoses Not on filedocumented in this encounter Care Teams Hot Wire Glass Tube Cutter Relationship Specialty Start Date End Date Kamar Saldivar MD PCP - General Family Medicine 09/20/[address] [place] [address] documented as of this encounter
--- OUTSIDE RECORDS SUMMARY | 2022-03-12 11:21 | XMS_ITS | Encounter Summary ---
:1955 Author Organization [facility] Address [address] [place] [address] Care Team Providers Name Role Phone None, Pcp Primary Care Provider Unavailable Encounter Details Date Type Department Care Team Description 05/15/2020 Lab [place] [address] [place], [place] [address] Social History Tobacco Use [...] Visit Endocrinology Annita Rivas MBBS [address] [place], [place] [address] (Wo rk) Pending Results Name Type Priority Associated Diagnoses Date/Ti me Lab collection (kit) level Lab Routine 1 10:53 AM CDT 2 documented as of this encounter Visit Diagnoses Not on filedocumented in this encounter Care Teams Executive Director Global Brand Marketing Relationship Specialty Start Date End Date None, Pcp PCP - General Mobile Equipment Mechanic 05/10/20 09/19/20 [address] [place] [address] documented as of this encounter
--- OUTSIDE RECORDS SUMMARY | 2022-03-12 11:21 | XMS_ITS | Encounter Summary ---
:1955 Author Organization [facility] Address [address] [place] [address] Care Team Providers Name Role Phone None, Pcp Primary Care Provider Unavailable Reason for Referral Consultation (Routine) - Closed Specialty Diagnoses / Procedures Referred By Contact Refer red To Contact Diagnoses Hypercalcemia Elevated parathyroid hormone Kamar Saldivar MD [facility] [address] [place], [place] [address] [facility] [address] [place] [address] Fax: Referral ID Status Reason Start Date Expiration Date Visits Requ ested Visits Authorized [id number] Closed 09/11/2020 03/10/2021 1 1 ORATION DRILLER Encounter Details Date Type Department Care Team Description 09/11/2020 Telephone [place] Kamar Saldivar MD [address] [facility] [address] [place], [place] [address] [place], [place] [phone] (Wo rk) Social History Tobacco Use Types [...] this encounter Miscellaneous Notes Telephone Encounter - Kamar Saldivar MD - 09/11/2020 3:38 PM CST Diagnosis Plan 1. Hypercalcemia Ambulatory External Referral Calcium, urine, 24 hour 2. Elevated parathyroid hormone Ambulatory External Referral Calcium, urine, 24 hour Patient informed of elevated pth borderline and hypercalcemia. 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 I offered referral to endocrinology vs starting further work up. Will get DEXA with VFA as well as 24 hour calcium.Vit d pending. TSH pending. ORATION DRILLER documented in this encounter Plan of Treatment Upcoming Encounters Date Type Specialty Care Team Description 03/21/2022 Office Visit Endocrinology Annita Rivas MBBS [address] [place] [address] (Wo rk) Scheduled Referrals Name Type Priority Associated Diagnoses Order S chedule Ambulatory External Outpatient Referral Routine Hypercal cemia Ordered: Referral Elevated parathyroid 021 hormone documented as of this encounter Results (ABNORMAL) Calcium, urine, 24 hour (09/18/2020 8:06 AM EXPLORATION DRILLER) [facility] Method Time Signature Calcium, 24H 532 (H) <200 mg/24 09/19/2020 [facility] Urine h 11:10 AM [facility] Comment: ADDITIONAL INFORMATIO N This test has been modified from the rhonda mo's instructions. Its performance characteri stics were determined by [facility] in a manner co nsistent with CLIA requirements. This test has not bee n cleared or approved by the U.S. Food and Drug Admin istration. Collection Duration 24 h 09/19/2020 11:10 AM EXPLORATION DRILLER [facility] Urine Volume 3,800 mL 09/19/2020 11:10 AM EXPLORATION DRILLER [facility] Calcium Concentration 14 mg/dL 09/19/2020 11:10 A M EXPLORATION DRILLER [facility] Comment: Test Performed by: [facility], [place] [address] [place] [address] Toy Department Manager: Milan Estevez M.D. Ph. D.; CLIA# [id number] Specimen Anatomical Collection Method Collection Time Receive d Time (Source) Location / / Volume Laterality Urine (Urine, 09/18/2020 8:06 AM 09/18/19 21 3:21 Clean Catch) EXPLORATION DRILLER PM EXPLORATION DRILLER Kamar Saldivar MD LAB URINE ORDERABLES Performing Organization Address City/State/ZIP Code Phon e Number [facility] see result attachment for specific address documented in this encounter Visit Diagnoses Diagnosis Hypercalcemia - Primary Elevated parathyroid hormone documented in this encounter Care Teams Bookstore Clerk Relationship Specialty Start Date End Date None, Pcp PCP - General Barrel Inspector 05/10/20 09/19/20 [address] [place] [address] documented as of this encounter
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
--- OUTSIDE RECORDS SUMMARY | 2022-03-12 11:21 | XMS_ITS | Encounter Summary ---
:1955 Author Organization [facility] Address [address] [place] [address] Care Team Providers Name Role Phone Martha Grace LAND TITLE EXAMINER, SHOULDER BONER Primary Care Provider [phone] Reason for Visit Reason Onset Date Comments fax 08/04/2019 Dexa scan and mammog froilan Encounter Details Date Type Department Care Team Description 08/04/2019 Telephone Baker Martha Grace, fax (Dexa scan and [address] LAND TITLE EXAMINER, PARAG mammogram) [place], [place] [address] [address] [phone] [place], [place] [address] Social History Tobacco Use [...] this encounter Miscellaneous Notes Telephone Encounter - Meaghan Felix - 08/04/2019 4:35 PM CST Referrals faxed. [employer] Telephone Encounter - Roula Martinez RN - 08/04/2019 4:25 PM CST Please fax referral for Dexa scan and mammogram to [facility] in [place]. [employer] documented in this encounter Plan of Treatment Upcoming Encounters Date Type Specialty Care Team Description 03/21/2022 Office Visit Endocrinology Annita Rivas MBBS [address] [place], [place] [address] (Wo rk) documented as of this encounter Visit Diagnoses Not on filedocumented in this encounter Care Teams Registry Np Relationship Specialty Start Date End Date Martha Grace, LAND TITLE EXAMINER, SHOULDER BONER PCP - General 03/03/18 04/03/20 [address] [place] [address] documented as of this encounter
--- OUTSIDE RECORDS SUMMARY | 2022-03-12 11:21 | XMS_ITS | Encounter Summary ---
:1955 Author Organization [facility] Address [address] [place] [address] Care Team Providers Name Role Phone Martha Grace APRN, CNP Primary Care Provider [phone] Encounter Details Date Type Department Care Team Description 07/24/2018 [facility] [address] [place], [place] [address] Social History Tobacco Use [...] Visit Endocrinology Annita Rivas MBBS [address] [place], [place] [address] (Wo rk) documented as of this encounter Visit Diagnoses Not on filedocumented in this encounter Care Teams Registered Nurse Relationship Specialty Start Date End Date Martha Grace APRN, PARAG PCP - General 03/03/18 04/03/[address] [place] [address] [place] MELO, CRISTOPHER [id number] documented as of this encounter
--- OUTSIDE RECORDS SUMMARY | 2022-03-12 11:21 | XMS_ITS | Encounter Summary ---
:1955 Author Organization [facility] Address [address] [place] [address] Care Team Providers Name Role Phone Martha Grace APRN, OUTSOLE LEVELER Primary Care Provider [phone] Encounter Details Date Type Department Care Team Description 08/16/2019 [facility] [place] Screening, lipid; [address] Screening for deficiency ane argent[place]; [place], [place] [address] Screening for diabetes [facility] [phone] Social History Tobacco Use Types Packs/Day Years [...] Endocrinology Annita Rivas MBBS [address] [place], [place] [address] (Wo rk) documented as of this encounter Procedures Procedure Name Priority Date/Time Associated Comments Diagnosis GLOMERULAR Routine 08/16/2019 8:16 AM Screening for Results for this FILTRATION RATE [place] diabetes mellitus procedu re are in the results section. CBC BRANCH OFFICE Routine 08/16/2019 8:16 AM Screening for Res ults for this W/DIFF [place] deficiency anemia procedure are in the results section. LIPID PANEL Routine 08/16/2019 8:16 AM Screening, lipid Resul ts for this [place] procedure are i n the results section. BASIC METABOLIC Routine 08/16/2019 8:16 AM Screening for Resul ts for this PANEL [place] diabetes mellitus procedure are in the results section. documented in this encounter Results Glomerular filtration rate (GFR) (08/16/2019 8:16 AM COT[place]AM[place]) athologist Signature GFR >60 08/16/2019 [facility] 12:24 PM [facility] >60 08/16/2019 [facility] Faroese GFR 12:24 PM [facility] Comment: GFR calculated from serum creatinine v alue Chronic Kidney Disease less than 60 mL/m in/1.73 m2 Kidney Failure less than 15 mL/min/1.73 m2 Note: effective 12/10/06 IDMS-Traceable MDRD Study Equation used. Specimen Anatomical Collection Method Collection Time Receive d Time (Source) Location / / Volume Laterality 08/16/2019 8:16 AM 0 8:16 [place] AM [place] Martha Grace APRN, CNP LAB BLOOD ORDERABLES Performing Organization Address City/State/ZIP Code Phon e Number [facility] [address] [place] [address] (ABNORMAL) Basic metabolic panel (08/16/2019 8:16 AM COT[place] JAM[place]) Patholo gist Method Time Signature Sodium 140 135 - 145 08/16/2019 [place] mEq/L 12:24 PM [facility] Potassium 4.3 3.5 - 5.1 08/16/2019 [place] mEq/L 12:24 PM [facility] Chloride 103 98 - 107 08/16/2019 [place] mEq/L 12:24 PM [facility] CO2 33 (H) 22 - 29 08/16/2019 [place] mmol/L 12:24 PM [facility] Creatinine 0.8 0.4 - 1.2 08/16/2019 [place] mg/dL 12:24 PM [facility] BUN 22 5 - 25 08/16/2019 [place] mg/dL 12:24 PM [facility] Glucose 93 70 - 100 08/16/2019 [place] mg/dL 12:24 PM [facility] Calcium, 10.9 (H) 8.4 - 10.2 08/16/2019 [place] Total,S mg/dL 12:24 PM [facility] Specimen Anatomical Collection Method Collection Time Receive d Time (Source) Location / / Volume Laterality Blood 08/16/2019 8:16 AM 0 [place] 11:45 AM [place] Martha Grace APRN, OUTSOLE LEVELER LAB BLOOD ORDERABLES Performing Organization Address City/State/ZIP Code Phon e Number [facility] [address] [place] [address] (ABNORMAL) CBC Branch Off w/Diff (08/16/2019 8:16 AM [place]) [facility] Method Time Signature WBC 4.9 3.5 - 10.5 08/16/2019 [facility] K/uL 11:04 AM [place] RBC 4.86 3.90 - 08/16/2019 [facility] 5.00 M/uL 11:04 AM [place] Hemoglobin 14.5 12.0 - 08/16/2019 [facility] 15.5 g/dL 11:04 AM [place] Hematocrit 44.1 (H) 35.0 - 08/16/2019 [facility] 44.0 % 11:04 AM [place] Platelets 284 150 - 450 08/16/2019 [facility] K/uL 11:04 AM [place] MCV 90.7 81.6 - 08/16/2019 [facility] 98.3 fL 11:04 AM [place] MCH 29.8 26.0 - 08/16/2019 [facility] 32.0 pg 11:04 AM [place] MCHC 32.9 32.0 - 08/16/2019 [facility] 36.0 g/dL 11:04 AM [place] RDW 12.8 11.9 - 08/16/2019 [facility] 15.5 % 11:04 AM [place] Lymphocytes % 32.1 18.0 - 08/16/2019 [facility] 45.0 % 11:04 AM [place] Mid-size Cells 7.6 3.3 - 10.1 08/16/2019 [facility] % 11:04 AM [place] Granulocytes/Ngozi 60.3 45.8 - 08/16/2019 [facility] trophils 73.7 % 11:04 AM [place] Lymphocytes 1.6 0.9 - 2.9 08/16/2019 [facility] [place] Absolute K/uL 11:04 AM [place] MIDS Absolute 0.4 0.2 - 0.8 08/16/2019 [facility] [place] K/uL 11:04 AM [place] Granulocytes/Ngozi 2.9 2.1 - 8.7 08/16/2019 [facility] [place] trophils K/uL 11:04 AM [place] Absolute Specimen Anatomical Collection Method Collection Time Receive d Time (Source) Location / / Volume Laterality Blood 08/16/2019 8:16 AM 0 8:26 [place] AM [place] Martha Grace APRN, OUTSOLE LEVELER LAB BLOOD ORDERABLES Performing Organization Address City/State/ZIP Code Phon e Number [facility] [place] [address] [place] [address] (ABNORMAL) Lipid panel (08/16/2019 8:16 AM [place]) athologist Signature Cholesterol 191 0 - 199 08/16/2019 [facility] mg/dL 12:24 PM [facility] Comment: Recommended by National Cholesterol Education Program (ATP III) -------- Cholesterol Ranges -------- <200 ? Desirable 200-239 ? Borderline high >=240 ? High Triglycerides 61 0 - 149 mg/dL 08/16/2019 12:24 PM T [facility] Comment: -------- TRIG Ranges -------- <150 ?Normal 150-199 ? Borderline high 200-499 ? High >=500 ? Very high HDL 71 40 - 60 mg/dL 08/16/2019 12:24 PM [facility] Comment: -------- HDL Ranges -------- <40 ?Low 40-59 ?Normal >=60 ? Optimal LDL Calculated 108 (A) 0 - 99 mg/dL 08/16/2019 12:24 PM [place] [facility] Comment: -------- LDL Ranges -------- <100 ? Optimal 100-129 ?Near optimal/above op timal 130-159 ?Borderline high 160-189 ?High >=190 ?Very high Fasting? Yes 08/16/2019 8:26 AM [place] [facility] Specimen Anatomical Collection Method Collection Time Receive d Time (Source) Location / / Volume Laterality Blood 08/16/2019 8:16 AM 0 [place] 11:45 AM [place] Martha Grace APRN, OUTSOLE LEVELER LAB BLOOD ORDERABLES Performing Organization Address City/State/ZIP Code Phon e Number [facility] [address] [place] [address] documented in this encounter Visit Diagnoses Diagnosis Screening, lipid Screening for deficiency anemia Screening for other and unspecified defi ciency anemia Screening for diabetes mellitus documented in this encounter Care Teams Mower Operator Relationship Specialty Start Date End Date Martha Grace APRN, OUTSOLE LEVELER PCP - General 03/03/18 04/03/20 [address] [place] [address] documented as of this encounter
--- OUTSIDE RECORDS SUMMARY | 2022-03-12 11:21 | XMS_ITS | Encounter Summary ---
:1955 Author Organization [facility] Address [address] [place] [address] Care Team Providers Name Role Phone Kamar Saldivar MD Primary Care Provider Reason for Visit Reason Comments Hypercalcemia Consultation (Routine) - Closed Specialty Diagnoses / Procedures Referred By Contact Refer red To Contact Endocrinology Diagnoses Primary hyperparathyroidism (HCC) Polyuria Kamar Saldivar Se Endocrinology [address] [place] [address] [place] [address] [place], [place] Phone: [phone] Referral ID Status Reason Start Date Expiration Date Visits V isits Requested Authorized [id number] Closed Specialty 09/19/2020 09/19/2021 1 1 Services Required Encounter Details Date Type Department Care Team Description 10/02/2020 Consult SE Endocrinology Valentina Figueroa, Hyperparathyroidism (HCC) (P rimary Dx); [address] [place] [address] MBBS Hypercalcemia; [place] [address] [address] [facility] Hypercalciuria [phone] [place] [address] Social History Tobacco Use Types Packs/Day Years [...] Sign Reading Time Taken Comments Blood Pressure 132/76 10/02/2020 5:41 PM MACHINE ERECTOR Pulse 77 10/02/2020 5:41 PM MACHINE ERECTOR Temperature 36.1 ??C (97 ??F) 10/02/2020 5:41 PM MACHINE ERECTOR Respiratory Rate 18 10/02/2020 5:41 PM MACHINE ERECTOR Oxygen Saturation 98% 10/02/2020 5:41 PM MACHINE ERECTOR Inhaled Oxygen Concentration - - Weight 78.4 kg (172 lb 13.5 oz) 10/02/2020 5:41 PM MACHINE ERECTOR Height 169 cm (5' 6.54) 10/02/2020 5:41 PM MACHINE ERECTOR Body Mass Index 27.45 10/02/2020 5:41 PM MACHINE ERECTOR documented in this encounter Progress Notes JMIBO Botello - 10/02/2020 5:45 PM CST Consultation Patient: Christen Tidwell 65 y.o. female 1955 Date of Service: 10/02/20 Referring provider: Kamar Saldivar MD Primary care provider: Kamar Saldivar MD Reason for consultation: Christen Tidwell is a 65 y.o. female referred to endocrine clinic regarding consultation for hyperparathyroidism. History of presenting illness: Patient is [...] high, 532. Urine creatinine was not checked. Patient states that she does not sleep well and feels tired in the daytime. She gives history of some weight gain. Denies any nausea, vomiting or abdominal pain. She routinely drinks plenty of fluids and has increased urination as a result. She wakes up 1-3 times at night to urinate. She denies polydipsia as such. Denies constipation. Has left knee pain. Denies any bone aches or pains otherwise. Denies any history of kidney stones. CT scan was ordered by her PCP but she canceled it due to high cost.Denies any history of fragility fractures. She recently had bone density scan at [facility], which was normal. Denies cigarette smoking or significant alcohol use. Denies any family history ofcalcium disorders. Denies use of any calcium supplements. She takes a multivitamin which might have some calcium in that. She takes some vitamin D3 daily. Denies use of thiazide diuretics. Denies any significant use of daily. She was seeing a chiropractor and had been on FODMAP diet. Now she is doing low oxalate diet. PM/SH: Past Medical History: Diagnosis Date ??? [...] file Gets together: Not on file Attends congregation service: Not on file Active member of [...] systems negative. Physical Examination: Visit Vitals BP 132/76 Pulse 77 Temp 36.1 ??C (97 ??F) Resp 18 Ht 1.69 m (5' 6.54) Wt 78.4 kg (172 lb 13.5 oz) SpO2 98% BMI 27.45 kg/m?? OB Status Postmenopausal Smoking Status Never Smoker BSA 1.92 m?? Constitutional: Appears well, No acute distress HEENT: AT/NC, EOMI, PERRLA, no lid lag, no retraction, no proptosis Neck: Supple, No abnormal lymph nodes identified Thyroid: Not enlarged Respiratory: Normal regular breathing, no crepts, no rhonchi Cardiovascular: S1+S2 no murmurs, rubs or gallops Musculoskeletal: Normal strength in all 4 extremities Neurological: AAOx3, Normal reflexes Ext: No edema, No tremors Skin: No dry skin, Normal hair distribution, No hyperpigmentation, No rash Psych: Normal mood, pleasant affect Laboratory Work up: Reviewed Imaging: Reviewed Assessment and Plan: 1. Hypercalcemia: 2. 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 Recently checked PTH was mildly elevated as well. Vitamin D, kidney function and TSH were normal. Urine analysis showed hypercalciuria. DEXA scanshowed normal bone density. Clinically, she appears to be asymptomatic. -I discussed pathophysiology, etiology and evaluation of hyperparathyroidism/hypercalcemia with her in detail. -Urine calcium was significantly elevated. However, calcium and PTH abnormality is relatively mild. -I reviewed that she likely has primary hyperparathyroidism. I discussed management of primary hyperparathyroidism with her and the surgical criteria. -We will recheck PTH/mineral labs and 24-hour urine calcium in 4 to 6 weeks. -She was advised to avoid any calcium supplements. Dietary calcium would be okay. -She was advised to ensure adequate hydration. -Follow-up in about 6 weeks, after labs. Reviewed with the patient in detail, she verbalized understanding and agreed with the plan. Valentina Figueroa MD Staff Instructor Traffic Safety INE ERECTOR documented in this encounter Miscellaneous Notes Addendum Note - JIMBO Botello - 10/02/2020 5:45 PM MACHINE ERECTOR Addended by: VALENTINA FIGUEROA on: 10/06/2020 05:43 AM Modules accepted: Orders INE ERECTOR documented in this encounter Plan of Treatment Upcoming Encounters Date Type Specialty Care Team Description 03/21/2022 Office Visit Endocrinology Valentina Figueroa MBBS [address] [place] [phone] (Wo rk) documented as of this encounter Results (ABNORMAL) Calcium, urine, 24 hour (10/27/2020 8:34 AM CDT) [facility] Method Time Signature Calcium, 24H 384 (H) <200 mg/24 10/28/2020 [facility] Urine h 7:25 AM CDT LABORATORIES Comment: ADDITIONAL INFORMATIO N This test has been modified from the rhonda mo's instructions. Its performance characteri stics were determined by [facility] in a manner co nsistent with CLIA requirements. This test has not bee n cleared or approved by the U.S. Food and Drug Admin istration. Collection Duration 24 h 10/28/2020 7:25 AM C DT [facility] Urine Volume 4,800 mL 10/28/2020 7:25 AM CDT [facility] Calcium Concentration 8 mg/dL 10/28/2020 7:25 AM CDT [facility] Comment: Test Performed by: [facility] [address] [place] [address] Admission Liaison: Milan Estevez M.D. Ph. D.; CLIA# [id number] Specimen Anatomical Collection Method Collection Time Receive d Time (Source) Location / / Volume Laterality Urine 10/27/2020 8:34 AM 2:39 CDT PM CDT Valentina CHOI LAB URINE ORDERABLES Performing Organization Address City/State/ZIP Code Phon e Number [facility] see result attachment for specific address Creatinine, urine, 24 hour (10/27/2020 8:34 AM CDT) P athologist Signature Urine Volume 4,800 mL 10/27/2020 [facility] 1:47 PM CDT [facility] Creatinine, 27 mg/dL 10/27/2020 [facility] Urine 1:47 PM CDT [facility] Comment: No established reference range. Creatinine, 24H Ur 1,296 800 - 1,800 10/27/2020 1:47 PM [facility] mg/24 hours CDT [facility] Comment: . Specimen Anatomical Collection Method Collection Time Receive d Time (Source) Location / / Volume Laterality Urine 10/27/2020 8:34 AM CDT 12:57 PM CDT Valentina CHOI LAB URINE ORDERABLES Performing Organization Address City/State/ZIP Code Phon e Number [facility] [address] [place] [address] (ABNORMAL) Basic metabolic panel (10/19/2020 8:28 AM CDT) P athologist Signature Sodium 139 135 - 145 10/19/2020 [facility] mmol/L 8:53 AM CDT [place] Potassium 4.3 3.5 - 5.1 10/19/2020 [facility] mmol/L 8:53 AM T [place] Comment: . Chloride 107 98 - 107 mmol/L 10/19/2020 8:53 AM CDT [facility] [place] Comment: . CO2 27 22 - 29 mmol/L 10/19/2020 8:53 AM CDT [facility] Comment: . Creatinine 0.6 0.4 - 1.2 mg/dL 10/19/2020 8:53 AM CDT [facility] [place] Comment: . BUN 22 5 - 25 mg/dL 10/19/2020 8:53 AM CDT [facility] [place] Comment: . Glucose 98 70 - 100 mg/dL 10/19/2020 8:53 AM [facility] [place] CDT Calcium, Total,S 10.5 (H) 8.4 - 10.2 mg/dL 10/19/2020 8:53 AM [facility] [place] CDT Comment: . Fasting? Yes 10/19/2020 8:39 AM CDT [facility] [place] Specimen Anatomical Collection Method Collection Time Receive d Time (Source) Location / / Volume Laterality Blood 10/19/2020 8:28 AM 8:38 CDT AM CDT Valentina CHOI LAB BLOOD ORDERABLES Performing Organization Address City/State/ZIP Code Phon e Number [facility] [address] [place] [address] Vitamin D, Total (10/19/2020 8:28 AM CDT) athologist Signature Vitamin D, 48.5 ng/mL 10/19/2020 [facility] Total 2:23 PM CDT [facility] Comment: Deficient ?<20 ? ng/mL Insufficient ? 20-<30 ??ng/mL Sufficient ? 30-100 ??ng/mL Vitamin D2/D3 fractionation is recommend ed at the discretion of the clinician if Total Vitamin D is w ithin deficient or insufficient range. Specimen Anatomical Collection Method Collection Time Receive d Time (Source) Location / / Volume Laterality Blood 10/19/2020 8:28 AM 1 CDT 12:58 PM CDT Ariza Shah [facility] LAB BLOOD ORDERABLES Performing Organization Address City/[facility]/ZIP Code Phon e Number [facility] [address] [place] [address] (ABNORMAL) PTH, intact (10/19/2020 8:28 AM CDT) Patholo gist Method Time Signature Parathyroid 88.6 (H) 10.0 - 10/19/2020 [facility] Hormone 87.0 1:57 PM T [facility] pg/mL LABORATORY Comment: The results from [...] (Source) Location / / Volume Laterality Blood 10/19/2020 8:28 AM 1 1:03 CDT PM CDT Valentina Figueroa [facility] LAB BLOOD ORDERABLES Performing Organization Address City/State/ZIP Code Phon e Number [facility] [address] [place] [address] Phosphorus (10/19/2020 8:28 AM CDT) P athologist Signature Phosphorus 3.2 2.5 - 4.5 10/19/2020 [facility] mg/dL 1:36 PM CDT [facility] Specimen Anatomical Collection Method Collection Time Receive d Time (Source) Location / / Volume Laterality Blood 10/19/2020 8:28 AM 1 CDT 12:58 PM CDT Valentina Figueroa BS LAB BLOOD ORDERABLES Performing Organization Address City/[facility]/ZIP Code Phon e Number [facility] [address] [place] [address] Magnesium (10/19/2020 8:28 AM CDT) athologist Signature Magnesium 2.1 1.6 - 2.3 10/19/2020 [facility] mg/dL 1:36 PM CDT [facility] Specimen Anatomical Collection Method Collection Time Receive d Time (Source) Location / / Volume Laterality Blood 10/19/2020 8:28 AM 1 CDT 12:58 PM CDT Valentina Figueroa BS LAB BLOOD ORDERABLES Performing Organization Address City/[facility]/ZIP Code Phon e Number [facility] [address] [place] [address] Albumin (10/19/2020 8:28 AM CDT) athologist Signature Albumin, Serum 4.5 3.5 - 5.0 10/19/2020 [facility] g/dL 1:36 PM CDT [facility] Specimen Anatomical Collection Method Collection Time Receive d Time (Source) Location / / Volume Laterality Blood 10/19/2020 8:28 AM 1 CDT 12:58 PM CDT Valentina Figueroa BS LAB BLOOD ORDERABLES Performing Organization Address City/[facility] Phon e Number [facility] [address] [place] [address] documented in this encounter Visit Diagnoses Diagnosis Hyperparathyroidism (HCC) - Primary Hyperparathyroidism, unspecified Hypercalcemia Hypercalciuria Unspecified disorders of calcium metabol ism documented in this encounter Care Teams Russian Language Professor Relationship Specialty Start Date End Date Kamar Saldivar MD PCP - General Family Medicine 09/20/[address] [place] [address] documented as of this encounter
--- OUTSIDE RECORDS SUMMARY | 2022-03-12 11:21 | XMS_ITS | Encounter Summary ---
:1955 Author Organization [facility] Address [address] [place] [address] Care Team Providers Name Role Phone Kamar Saldivar MD Primary Care Provider Encounter Details Date Type Department Care Team Description 09/20/2020 Telephone [place] None, Pcp [address] [facility] [place], [place] [address] [place] [address] Social History Tobacco Use Types Packs/Day Years [...] Notes Telephone Encounter - Meaghan Felix - 09/21/2020 10:50 AM CST Referral faxed. ULSION ENGINEER Telephone Encounter - Roula Martinez RN - 09/20/2020 9:39 AM CST Please fax referral to Rina Hawley. ULSION ENGINEER documented in this encounter Plan of Treatment Upcoming Encounters Date Type Specialty Care Team Description 03/21/2022 Office Visit Endocrinology Annita Rivas MBBS [address] [place], [place] [address] (Wo rk) documented as of this encounter Visit Diagnoses Not on filedocumented in this encounter Care Teams Disability Representative Relationship Specialty Start Date End Date Kamar Saldivar MD PCP - General Family Medicine 09/20/[address] [place] [address] documented as of this encounter
--- OUTSIDE RECORDS SUMMARY | 2022-03-12 11:21 | XMS_ITS | Encounter Summary ---
:1955 Author Organization [facility] Address [address] [place] [address] Care Team Providers Name Role Phone Kamar Saldivar MD Primary Care Provider Reason for Visit Reason Onset Date Comments lab test question 09/27/2020 Encounter Details Date Type Department Care Team Description 09/27/2020 Telephone [place] Kamar Saldivar MD lab test question [address] [place], [place] [address] [place], [place] [phone] (Wo rk) Social History Tobacco Use Types [...] Telephone Encounter - Miroslava Miller LPN - 09/27/2020 4:39 PM CST Spoke to Rosalina and explained to her she would need to order the kit. Then have her neurologist send usan order to draw the kit here. DENT CAREGIVER Telephone Encounter - Erin Qureshi MA - 09/27/2020 3:29 PM CST LMTCB DENT CAREGIVER Telephone Encounter - Miroslava Miller LPN - 09/27/2020 2:44 PM CST Vibrant blood draw? Her functional neurologist is requesting it. So she was wondering if we preformed this here. [employer] is the website? Having the lab look into this. DENT CAREGIVER Telephone Encounter - Antoinette Hogan - 09/27/2020 1:58 PM CST Pt called asking to talk with a nurse about a lab test she may want to have. Please call Pt at [phone] to advise. DENT CAREGIVER documented in this encounter Plan of Treatment Upcoming Encounters Date Type Specialty Care Team Description 03/21/2022 Office Visit Endocrinology Annita Rivas MBBS [address] [place], [place] [address] (Wo rk) documented as of this encounter Visit Diagnoses Not on filedocumented in this encounter Care Teams Poultry Veterinarian Relationship Specialty Start Date End Date Kamar Saldviar MD PCP - General Family Medicine 09/20/[address] [place] [address] documented as of this encounter
--- OUTSIDE RECORDS SUMMARY | 2022-03-12 11:21 | XMS_ITS | Encounter Summary ---
:1955 Author Organization [facility] Address [address] [place] [address] Care Team Providers Name Role Phone None, Pcp Primary Care Provider Unavailable Encounter Details Date Type Department Care Team Description 09/18/2020 Lab [place] Hypercalcemia; [address] Elevated parathyroid hormone [place], [place] [address] Social History Tobacco Use [...] Endocrinology Annita Rivas MBBS [address] [place], [place] [address] (Wo rk) documented as of this encounter Procedures Procedure Name Priority Date/Time Associated Diagnosis Comme nts CALCIUM, URINE, 24 Routine 09/18/2020 8:06 AM Hyper[place]ce [place] Results for this HOUR BOXING MACHINE OPERATOR Elevated parathyroid procedu re are in hormone the results section. documented in this encounter Results (ABNORMAL) Calcium, urine, 24 hour (09/18/2020 8:06 AM BOXING MACHINE OPERATOR) [facility] gist Method Time Signature Calcium, 24H 532 (H) <200 mg/24 09/19/2020 [facility] Urine h 11:10 AM [facility] Comment: ADDITIONAL INFORMATIO N This test has been modified from the man ufacturer's instructions. Its performance characteri stics were determined by [facility] in a manner co nsistent with CLIA requirements. This test has not bee n cleared or approved by the U.S. Food and Drug Admin istration. Collection Duration 24 h 09/19/2020 11:10 AM [facility] Urine Volume 3,800 mL 09/19/2020 11:10 AM [facility] Calcium Concentration 14 mg/dL 09/19/2020 11:10 A M [facility] Comment: Test Performed by: [facility] [address] [place] [address] Equipment Sterilizer: Milan Estevez M.D. Ph. D.; CLIA# [id number] Specimen Anatomical Collection Method Collection Time Receive d Time (Source) Location / / Volume Laterality Urine (Urine, 09/18/2020 8:06 AM 09/18/19 21 3:21 Clean Catch) BOXING MACHINE OPERATOR PM BOXING MACHINE OPERATOR Kamar Saldivar MD LAB URINE ORDERABLES Performing Organization Address City/State/ZIP Code Phon e Number [facility] see result attachment for specific address documented in this encounter Visit Diagnoses Diagnosis Hypercalcemia Elevated parathyroid hormone documented in this encounter Care Teams Engineering Test Specialist Relationship Specialty Start Date End Date None, Pcp PCP - General Spa Host 05/10/20 09/19/20 [address] [place] [address] documented as of this encounter
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
--- OUTSIDE RECORDS SUMMARY | 2022-03-12 11:21 | XMS_ITS | Encounter Summary ---
:1955 Author Organization [facility] Address [address] [place] [address] Care Team Providers Name Role Phone Kamar Saldivar MD Primary Care Provider Encounter Details Date Type Department Care Team Description 10/19/2020 Lab [place] Hyperparathyroidism (HCC); [address] Hypercalcemia; [place], [place] [address] Hypercalciuria [phone] Social History Tobacco Use Types Packs/Day Years [...] Endocrinology Annita Rivas MBBS [address] [place], [place] [address] (Wo rk) documented as of this encounter Procedures Procedure Name Priority Date/Time Associated Diagnosis Comme nts GLOMERULAR Routine 10/19/2020 8:28 Hyperparathyroid ism (HCC) Results for this FILTRATION RATE AM CDT Hypercalcemia procedure are in Hypercalciuria the results section. VITAMIN D, TOTAL Routine 10/19/2020 8:28 Hyperparathyroi dism (HCC) Results for this AM CDT Hypercalcemia procedure are in the results section. PHOSPHORUS Routine 10/19/2020 8:28 Hyperparathyroid ism (HCC) Results for this AM CDT Hypercalcemia procedure are in the results section. PTH, INTACT Routine 10/19/2020 8:28 Hyperparathyroid ism (HCC) Results for this AM CDT Hypercalcemia procedure are in the results section. MAGNESIUM Routine 10/19/2020 8:28 Hyperparathyroid ism (HCC) Results for this AM CDT Hypercalcemia procedure are in the results section. ALBUMIN Routine 10/19/2020 8:28 Hyperparathyroid ism (HCC) Results for this AM CDT Hypercalcemia procedure are in the results section. BASIC METABOLIC Routine 10/19/2020 8:28 Hyperparathyroid ism (HCC) Results for this PANEL AM CDT Hypercalcemia procedure are in Hypercalciuria the results section. documented in this encounter Results Glomerular filtration rate (GFR) (10/19/2020 8:28 AM CDT) athologist Signature GFR >60 10/19/2020 [facility] 8:53 AM CDT [facility] >60 10/19/2020 [facility] Mongolian GFR 8:53 AM CDT [facility] Comment: GFR calculated from serum creatinine v alue Chronic Kidney Disease less than 60 mL/m in/1.73 m2 Kidney Failure less than 15 mL/min/1.73 m2 Note: effective 12/10/06 IDKY-Traceable MDRD Study Equation used. Specimen Anatomical Collection Method Collection Time Receive d Time (Source) Location / / Volume Laterality 10/19/2020 8:28 AM 8:28 CDT AM CDT Annita CHOI LAB BLOOD ORDERABLES Performing Organization Address City/State/ZIP Code Phon e Number [facility] [address] [place] [address] Albumin (10/19/2020 8:28 AM CDT) athologist Signature Albumin, Serum 4.5 3.5 - 5.0 10/19/2020 [facility] g/dL 1:36 PM CDT [facility] Specimen Anatomical Collection Method Collection Time Receive d Time (Source) Location / / Volume Laterality Blood 10/19/2020 8:28 AM 1 CDT 12:58 PM CDT Ariza Shah [facility] LAB BLOOD ORDERABLES Performing Organization Address City/[facility]/ZIP Code Phon e Number [facility] [address] [place] [phone] Magnesium (10/19/2020 8:28 AM CDT) P athologist Signature Magnesium 2.1 1.6 - 2.3 10/19/2020 [facility] mg/dL 1:36 PM CDT [facility] Specimen Anatomical Collection Method Collection Time Receive d Time (Source) Location / / Volume Laterality Blood 10/19/2020 8:28 AM 1 CDT 12:58 PM CDT Ariza Shah [facility] LAB BLOOD ORDERABLES Performing Organization Address City/[facility]/ZIP Code Phon e Number [facility] [address] [place] [address] Phosphorus (10/19/2020 8:28 AM CDT) P athologist Signature Phosphorus 3.2 2.5 - 4.5 10/19/2020 [facility] mg/dL 1:36 PM CDT [facility] Specimen Anatomical Collection Method Collection Time Receive d Time (Source) Location / / Volume Laterality Blood 10/19/2020 8:28 AM 1 CDT 12:58 PM CDT Ariza Shah [facility] LAB BLOOD ORDERABLES Performing Organization Address City/[facility]/ZIP [facility] Phon e Number [facility] [address] [place] [address] (ABNORMAL) PTH, intact (10/19/2020 8:28 AM CDT) [facility] gist Method Time Signature Parathyroid 88.6 (H) 10.0 - 10/19/2020 [facility] Hormone 87.0 1:57 PM CDT [facility] pg/mL LABORATORY Comment: The results from [...] 8:28 AM 1 1:03 CDT PM CDT Annita Rivas [facility] LAB BLOOD ORDERABLES Performing Organization Address [facility] Phon e Number [facility] [address] [place] [phone] Vitamin D, Total (10/19/2020 8:28 AM CDT) athologist Signature Vitamin D, 48.5 ng/mL 10/19/2020 [facility] Total 2:23 PM CDT [facility]ENTER [facility] Comment: Deficient ?<20 ? ng/mL Insufficient ? 20-<30 ??ng/mL Sufficient ? 30-100 ??ng/mL Vitamin D2/D3 fractionation is recommend ed at the discretion of the clinician if Total Vitamin D is w ithin deficient or insufficient range. Specimen Anatomical Collection Method Collection Time Receive d Time (Source) Location / / Volume Laterality Blood 10/19/2020 8:28 AM CDT 12:58 PM CDT Annita Rivas [facility] LAB BLOOD ORDERABLES Performing Organization Address [facility] Phon e Number [facility] [address] [place] [phone] (ABNORMAL) Basic metabolic panel (10/19/2020 8:28 AM CDT) P athologist Signature Sodium 139 135 - 145 10/19/2020 [facility] [place] mmol/L 8:53 AM CDT [facility] Potassium 4.3 3.5 - 5.1 10/19/2020 [facility] [place] mmol/L 8:53 AM CDT [facility] Comment: . Chloride 107 98 - 107 mmol/L 10/19/2020 8:53 AM CDT [facility] [place] Comment: . CO2 27 22 - 29 mmol/L 10/19/2020 8:53 AM CDT [facility] [place] Comment: . Creatinine 0.6 0.4 - 1.2 mg/dL 10/19/2020 8:53 AM CDT [facility] [place] Comment: . BUN 22 5 - 25 mg/dL 10/19/2020 8:53 AM CDT [facility] [place] Comment: . Glucose 98 70 - 100 mg/dL 10/19/2020 8:53 AM [facility] [place] CDT Calcium, Total,S 10.5 (H) 8.4 - 10.2 mg/dL 10/19/2020 8:53 AM [facility] [place] CDT Comment: . Fasting? Yes 10/19/2020 8:39 AM CDT [facility] [place] Specimen Anatomical Collection Method Collection Time Receive d Time (Source) Location / / Volume Laterality Blood 10/19/2020 8:28 AM 8:38 CDT AM CDT Annita CHOI LAB BLOOD ORDERABLES Performing Organization Address City/State/ZIP Code Phon e Number [facility] BRENDAN CARCAMO [address] [place] [phone] documented in this encounter Visit Diagnoses Diagnosis Hyperparathyroidism (HCC) Hyperparathyroidism, unspecified Hypercalcemia Hypercalciuria Unspecified disorders of calcium metabol ism documented in this encounter Care Teams Forensic Sergeant Relationship Specialty Start Date End Date Kamar Saldivar MD PCP - General Family Medicine 09/20/[address] [place] [phone] documented as of this encounter
--- OUTSIDE RECORDS SUMMARY | 2022-03-12 11:21 | XMS_ITS | Encounter Summary ---
:1955 Author Organization [facility] Address [address] [place] [address] Care Team Providers Name Role Phone None, Pcp Primary Care Provider Unavailable Reason for Visit Reason Onset Date Comments DEXA referral 09/11/2020 Encounter Details Date Type Department Care Team Description 09/11/2020 Telephone [place] None, Pcp DEXA referral [address] [place], [place] [address] [place], [place] [phone] Social History Tobacco Use Types Packs/Day [...] Telephone Encounter - Miroslava Miller LPN - 09/11/2020 4:59 PM CST Noted [employer]Y [employer]NSHIP Telephone Encounter - Antoinette Hogan - 09/11/2020 4:58 PM CST Referral and face sheet faxed to [facility] radiology as requested. NOLOGY INTERNSHIP Telephone Encounter - Miroslava Miller LPN - 09/11/2020 4:47 PM CST Please fax DEXA to [facility] NOLOGY [employer]NSHIP documented in this encounter Plan of Treatment Upcoming Encounters Date Type Specialty Care Team Description 03/21/2022 Office Visit Endocrinology Annita Rivas MBBS [address] [place] [phone] (Wo rk) documented as of this encounter Visit Diagnoses Not on filedocumented in this encounter Care Teams Quantitative Developer Relationship Specialty Start Date End Date None, Pcp PCP - General Traditional Chinese Herbalist 05/10/20 09/19/20 [address] [place] [address] documented as of this encounter
--- OUTSIDE RECORDS SUMMARY | 2022-03-12 11:21 | XMS_ITS | Encounter Summary ---
:1955 Author Organization [facility] Address [address] [place] [address] Care Team Providers Name Role Phone None, Pcp Primary Care Provider Unavailable Reason for Visit Reason Comments Nail Problem bilateral Encounter Details Date Type Department Care Team Description 05/10/2020 Office Visit [facility] Dela Cruz Onychomycosis of toenail [address] MD Augustin (Primary Dx) [place], [place] [phone] [facility] [address] [place] [address] Social History Tobacco Use Types Packs/Day Years [...] Sign Reading Time Taken Comments Blood Pressure 128/80 05/10/2020 3:58 PM CDT Pulse 90 05/10/2020 3:58 PM CDT Temperature 36.7 ??C (98.1 ??F) 05/10/2020 3:58 PM CDT Respiratory Rate 20 05/10/2020 3:58 PM CDT Oxygen Saturation - - Inhaled Oxygen Concentration - - Weight - - Height - - Body Mass Index - - documented in this encounter Progress Notes Magnolia Dela Cruz MD - 05/10/2020 4:00 PM CDT Estab Patient Visit Subjective Patient ID: Christen Tidwell is a 64 y.o. female. HPI the patient is here today because of some concerns regarding her 2 great toenails. The patient is a 64-year-old individual who has had a history of a squamous cell skin cancer. She also lesion of her right index finger that apparently had some concern for possible melanoma she was actually taken back to the OR to have this removed and it was not melanoma. Now she has been dealing with her 2 great toenails with fungal infections where the toenails are being basically, slightly striated she would like to have that evaluated. She has been using [id number] product Melaleuca with some possible balance. Does not cause any pain or discomfort and she just wants them taken care of. Review of Systems Objective Physical Exam she is alert. She appears comfortable her blood pressure is 128/80 pulse 80 temp 98.1 Her right great toenail is pretty shaky looking at the edges slow increased thickness to appears to be brittle and has several dark areas along the edge of the entire nail bed. The base of the nail of the lunula is probably normal also the potential this is something concern is pretty minimal. Her right great toenail also has some general thickening as well as brittle S2 consistent with fungal infection as well. We discussed a variety of different treatment options including doing abdomen including the using prescription medication Lamisil once a day for 3 months which has an approximate 90 to 95% cure. However she has a little bit against using drugs other than holistic things like mental outlook. And she just like to have both of these toenails removed. She has a trip coming up out to you time and there will be some hiking involved in the next 3 weeks or so I told the patient she should probably wait to have this procedure done until she returns a trip may be her toenails will look a little better and she can continue to use the Melaleuca. If she still wishes to have her toenails removed we can do so after the holiday. Assessment/Plan Diagnoses and all orders for this visit: Onychomycosis of toenail The assessment is bilateral great toe onychomycosis and the plan is as stated. documented in this encounter Plan of Treatment Upcoming Encounters Date Type Specialty Care Team Description 03/21/2022 Office Visit Endocrinology Annita Rivas MBBS [address] [place] [phone] (Wo rk) documented as of this encounter Visit Diagnoses Diagnosis Onychomycosis of toenail - Primary documented in this encounter Care Teams Printed Products Assembler Relationship Specialty Start Date End Date None, Pcp PCP - General Heating And Refrigeration Inspector 05/10/20 09/19/20 [address] [place] [address] documented as of this encounter
[2022-03-12 13:38] LABS: Basophils Absolute Auto 0.04 K/uL (0.00-0.30); Basophils Percent Auto 0.7 % (0.0-3.0); Eosinophils Absolute Auto 0.09 K/uL (0.00-0.50); Eosinophils Percent Auto 1.6 % (0.0-7.0); Hematocrit 44.8 % (33.0-51.0); Hemoglobin* 14.5 gm/dL (12.0-16.0); Lymphocytes Absolute Auto 1.68 K/uL (0.90-2.90); Lymphocytes Percent Auto 30.1 % (20-44); Mean Corpuscular HGB Conc 32 gm/dL (32-36); Mean Corpuscular Hemoglobin 29 pg (26-34); Mean Corpuscular Volume 90 fL (80-100); Monocytes Percent Auto 7.9 % (0.0-11.0); Neutrophils Absolute Auto 3.34 K/uL (1.7-7.0); Neutrophils Percent Auto 59.7 % (42.0-72.0); Platelet Count* 339 K/uL (140-440); RDW Coefficient of Variation % 12.7 % (11.5-15.5); Red Blood Count 4.97 m/uL (4.00-5.20); White Blood Count* 5.59 K/uL (4.50-11.00)
[2022-03-12 13:44] LABS: Slide Review Reflex No
== END 2022-03-12 11:11 | disposition home or self-care (01) ==
LOC: KYNREF 11:18
PROVIDERS: PCP Nurse Practitioner Family; Visit Provider Nurse Practitioner Family
DX: R53.83 Other fatigue (principal)
CPT/HCPCS: 36415; 85025

== ENCOUNTER 2022-03-28 12:49 | Outpatient (CLI) | payer MEDICARE, BC, SELFPAY ==
--- OUTSIDE RECORDS SUMMARY | 2022-03-28 12:54 | XMS_ITS | Clinical Summary ---
:1955 Author Organization [facility] [place] [address] Care Team Providers Name Role Phone Martha Grace NP Primary Care Provider Unavailable Allergies No known active allergies Medications Medication Sig Dispensed Refills Start Date End Date Status MULTI-VITAMIN TAB take 1 tablet by 0 08/18/2008 Active oral route once daily with food MEDICATION ORDER Glucosamine and 0 08/18/2008 Active COMPOSER chondroitin orally once daily. omega-3 fatty Take by mouth. 0 10/15/2012 Active acids-vitamin E (FISH OIL) 1,000 mg cap diclofenac Take 1 tablet by 40 tablet 1 12/15/2018 A ctive (VOLTAREN) 75 mg mouth 2 times daily delayed-release with meals. tabletIndications: Tibialis anterior tenosynovitis, Right foot pain Active Problems Problem Noted Date Actinic keratosis Abnormal glandular Papanicolaou smear of cervix Overview: ASC-US 05/28/05 HPV negative, 07/01/06 H PV negative Screening for lipoid disorders Overview: 03/18/02 total:175, hdl:59, ldl:99 Other screening mammogram Overview: 07/01/06, 01/2011- neg Special screening for malignant neoplasms, colon Overview: 08/11/06 Colonoscopy 04/2017 normal repeat in 10 years Immunizations Name Administration Dates Next Due Td (Age >=7 Years) 03/23/2003 Tdap 08/10/2012 Family History Medical History Relation Name Comments Hyperlipidemia Brother 4 Cancer Brother 5 skin cancer Other Father parkinson's, ski n cancer Cancer Mother skin cancer Cancer-breast No Family History Cancer-colon No Family History Relation Name Status Comments Brother 1 Alive Brother 2 Alive Brother 3 Alive Brother 4 Brother 5 Father parkinson's, ski n cancer Mother Alive Social History Tobacco Use Types Packs/Day Years Used Date Never Smoker Smokeless Tobacco: Never Used Alcohol Use Standard Drinks/Week Comments Yes 0 (1 standard drink = 0.6 oz pure alcoho l) once per week Alcohol Habits Answer Date Recorded How often do you have a drink containing alcohol? Not asked How many drinks containing alcohol do you have on a Not aske d typical day when you are drinking? How often do you have six or more drinks on one occasion? No t asked Comment: once per week 08/10/2012 Sex Assigned at Date Recorded Female 08/31/2020 8:35 AM [employer] Obstetrics History Para Term AB IAB SAB Ectopic Multiple Living Live Births 4 4 Date Outcome GA Total Labor/2nd/3rd Weight Sex Delivery Anes PTL Ban A 1 A5 Name Clin Labor Para Matthew rocha Para Jose E Jr Para Eyal l Para Isak combs Last Filed Vital Signs Vital Sign Reading Time Taken Comments Blood Pressure 112/62 12/15/2018 3:15 PM CDT Pulse 75 06/19/2016 3:32 PM [employer] Temperature 36.6 ??C (97.9 ??F) 02/07/2011 1:23 PM CDT Respiratory Rate 14 03/01/2021 2:05 PM CDT Oxygen Saturation 96% 06/19/2016 3:32 PM [employer] Inhaled Oxygen Concentration - - Weight 68 kg (150 lb) 01/13/2013 10:34 AM CDT Height 170.8 cm (5' 7.25) 08/10/2012 3:56 PM [employer] Body Mass Index 23.32 08/10/2012 3:56 PM [employer] Plan of Treatment Upcoming Encounters Date Type Specialty Care Team Description 03/28/2022 Orders Only Health Maintenance Due Date Last Done Comments COVID-19 vaccine series (#1) 01/16/1956 Depression screening for age 12+ 1968 BMI (ht and wt on same day) for 1974 age 18+ Hepatitis C screening for age 1207/18/1974 18-79 Zoster (shingles) series for age 1207/18/2006 50+ (1 of 2) Pap test for age 21-65 08/10/2015 08/10/2012, 07/28/2009 [facility] 08/18/2008, Additional history exists Lipids for age 45-75 08/10/2017 08/10/2012, 07/17/2007 DEXA/DXA scan for age 65+ 2021 Pneumococcal series for age 65+ (1 2021 - PCV) Mammogram for age 45-75 08/31/2021 08/31/2020, 08/18/2019, 07/10/2018, Additional history exists Influenza for age 65+ 03/28/2022 Tetanus booster 08/10/2022 08/10/2012, 03/23/2003 Colonoscopy through age 75 05/26/2027 05/26/2017, 7, 05/26/2017, Additional history exists Tdap Completed 08/10/2012 Results Not on filefrom Last 3 Months Insurance Payer Benefit Plan / Subscriber ID Effective Dates Phone Addre ss Type Group [employer] [id number] 2008-Present [address] [place] [address] Care Teams Water Pollution Control Technician Relationship Specialty Start Date End Date Martha Grace NP PCP - General Emergency Medicine 05/09/17 [address] [place] [address]
[2022-03-28] MEDS: PERFLUTREN LIPID MICROSPHERES 2 ML VIAL IV (13:47)
[2022-03-28 14:20] VITALS: BP 149/78; PULSE 80
--- NOTE | 2022-03-28 15:00 | PM.ST ---
Stress Test Note Date Time Seen by Provider: 14:00 Date Seen: 03/28/22 Date of test: 03/28/22 Providers Referring provider: Martha Grace Primary care provider: Martha Grace Stress test physician: Katherine Aviles Stress Test Note Stress test ordered: Stress Echo Indication for test: Patient's cardiac stress test history reviewed, dyspnea is complaint. Stress test medicine: Definity Results discussion: Resting EKG: Showing sinus rhythm, 76 beats per minute. Resting blood pressure: 139/82 Stress test: Patient was exercise following standard Guilherme protocol, exercised on the treadmill. She was able to exercise to 11 minutes 22 seconds. She had no concerning symptomatology. Test was terminated due to exercise capacity fatigue and patient reaching her goal heart rate. She established a maximum heart rate of 140 beats per minute which was 106% of a calculated target heart rate of 132. She achieved 12.1 Mets. Rate pressure product was calculated to be 26,410 with a maximum heart rate of 139 and a blood pressure of 190 systolic. There were occasional PVC at the maximal exercise and 1 couplet at that 29 seconds recovery seen. Otherwise no arrhythmia. No ischemic change noted on the EKG portion. Patient's heart rate recovered quickly. She did have a hypertensive response to exercise. Impression: Subjectively negative, objectively negative EKG portion of this stress echo. Follow up suggested: She will await the echo images to be sent to [facility]. Once these are back, the report will couple this for a full formal diagnostic.
== END 2022-03-28 12:50 | disposition home or self-care (01) ==
LOC: STRESS 12:50
PROVIDERS: PCP Nurse Practitioner Family; Visit Provider Family Medicine
DX: R06.09 Other forms of dyspnea (principal)
CPT/HCPCS: 93016; 93325; 93351; Q9957

== ENCOUNTER 2024-11-05 07:53 | Outpatient (CLI) | payer MEDICARE, BC, SELFPAY ==
--- NOTE | 2024-11-05 08:00 | CRLHL7_ITS ---
For Patients: As a result of the Century Cures Act, medical imaging exams and procedure reports are released immediately into your electronic medical record. You may view this report before your referring provider. If you have questions, please contact your health care provider. INDICATION: Abdominal bloating TECHNIQUE: CT abdomen and pelvis acquired with 91 cc Isovue 370 IV contrast. COMPARISON: None. FINDINGS: Lower chest: Bibasilar atelectasis. Liver: Unremarkable. Normal in size and attenuation. No suspicious masses. Multiple scattered small hypoattenuating lesions are too small to accurately characterize, although likely benign cysts in the absence of known malignancy. Gallbladder and bile ducts: Unremarkable. No stones or inflammation. No biliary dilatation. Pancreas: Unremarkable. No mass or inflammation. Spleen: Unremarkable. Normal in size. No masses. Adrenal glands: Unremarkable. No nodules. Kidneys: Unremarkable. No suspicious masses, stones, or hydronephrosis. Multiple right renal cysts measuring up to 2.2 cm in the inferior pole GI tract: Radiopaque ovoid densities in the stomach, likely ingested pills. Normal in caliber. No sign of mass or inflammation. Normal appendix. Vasculature: Abdominal aorta is normal in caliber. Mesenteric arteries are patent. Lymph nodes: No lymphadenopathy. Peritoneum/Abdominal Wall: Unremarkable. No sign of mass or infiltration. No free air or significant free fluid. Pelvis: Slightly expanded appearance of the cervix, although without discrete mass, may be within physiologic limits. Bones: Multilevel degenerative change imaged spine. Bilateral sacroiliac joint and pubic symphysis sclerosis. Subcentimeter sclerotic focus within the left superior acetabulum, nonspecific although likely a bone island IMPRESSION: 1. No acute findings. No etiology to explain the patient`s symptoms. 2. Slightly expanded appearance of the cervix, although without discrete mass, may be within physiologic limits. Consider correlation with gynecologic exam. Please note that all CT scans at this facility use dose modulation, iterative reconstruction, and/or weight-based dosing when appropriate to reduce radiation dose to as low as reasonably achievable. Dictated by Perla Nicholas MD @ 11/05/2024 12:57:40 PM (Electronically Signed)
[2024-11-05 08:24] LABS: Creatinine* 0.9 mg/dL (0.5-1.5); Estimated Glomerular Filt Rate 70 ml/min
== END 2024-11-05 07:54 | disposition home or self-care (01) ==
LOC: CT 07:55
PROVIDERS: PCP Nurse Practitioner Family; Visit Provider Nurse Practitioner Family
DX: R14.0 Abdominal distension (gaseous) (principal)
CPT/HCPCS: 36415; 74177; 82565; Q9967

== ENCOUNTER 2024-12-02 09:15 | Outpatient (CLI) | payer MEDICARE, BC, SELFPAY | END 2024-12-02 09:16 | disposition home or self-care (01) | PROVIDERS: PCP Nurse Practitioner Family; Visit Provider Nurse Practitioner Family | DX: I10 Essential (primary) hypertension (principal) | CPT/HCPCS: 80053; 80061 ==

== ENCOUNTER 2024-12-08 12:00 | Outpatient (CLI) | payer MEDICARE, BC, SELFPAY | END 2024-12-08 12:01 | disposition home or self-care (01) | LOC: NFLDREF 12-15 03:12 | PROVIDERS: PCP Nurse Practitioner Family; Referring Provider Nurse Practitioner Family; Visit Provider Obstetrics & Gynecology | DX: N39.3 Stress incontinence (female) (male) (principal) | CPT/HCPCS: 87086 ==